=== PATIENT | male | born 1970 | race Hispanic/Latino ===

== ENCOUNTER 2024-04-22 13:26 | Emergency (ER) | payer OTHER ==
[~2024-04-22] VITALS: Ht 167.6 cm; Wt 99.8 kg
[2024-04-22 14:30] VITALS: BP 160/104; PULSE 59; RESP 20; TEMP 98.6
--- NOTE | 2024-04-22 14:49 | ERN ---
General Chief Complaint: Headache Stated Complaint: HEADACHE, CHILLS Time Seen by MD: 13:30 History of Present Illness Initial Comments 53-year-old male sent by the PA for concern for serotonin syndrome. Patient reports that last four days or so he said my clonus and jittering that is uncontrollable, it is even affecting his speech. He has a history of serotonin syndrome in the past. He reports that he was similar symptoms currently. Current medications: Atenolol, atorvastatin, empagliflozin/metformin, insulin, melatonin, montelukast, omeprazole, prazosin, ropinirole, topiramate Allergies: Coded Allergies: divalproex sodium (Unverified Allergy, Intermediate, 04/22/24) Past Medical History Past Medical History: Diabetes-Type II, Hypertension Medical History Other: PTSD, RESTLESS LEG Past Surgical History: Appendectomy ROS Dictation CONSTITUTIONAL: Uncontrollable movements, clonus HEAD/FACE: No signs of trauma. EENT: No eye pain, no blurred vision, no tearing, no double vision, no ear pain, no ear discharge, no nose pain, no nasal congestion, no throat pain, no throat swelling, no mouth pain. RESPIRATORY: No cough, no orthopnea, no SOB, no stridor, no wheezing. CARDIOVASCULAR: No chest pain, no edema, no palpitations, no syncope. GASTROINTESTINAL/ABDOMINAL: No abdominal pain, no constipation, no diarrhea, no nausea, no vomiting. GENITOURINARY: No abnormal discharge, no dysuria, no frequent urination, no hematuria. No complaints of pain in the genitals. MUSCULOSKELETAL: No back pain, no gout, no joint pain, no joint swelling, no muscle pain, no muscle stiffness, no neck pain. INTEGUMENTARY: No change in color, no change in hair/nails, no dryness, no lesion, no lumps, no rash. NEUROLOGICAL/PSYCH: No anxiety, not depressed, no emotional problem, no headache, no numbness, no pre-existing deficit, no history of seizures, no tremors, no weakness. HEMATOLOGIC/LYMPHATIC: Not anemic, no history of blood clots, no apparent bleeding, no bruising, glands not swollen. All Systems Negative, Except as Noted. Physical Exam Physical Exam Dictation VITAL SIGNS: Reviewed. GENERAL APPEARANCE: Alert, oriented x3, no acute distress, obese. HEAD AND FACE: Non-traumatic. EYES: PERRL, pink conjunctivas, eyelid no trauma, anterior chamber clear. EARS: Pinnas intact and no signs of trauma or erythema. Ear canals clear and no discharge. TMs no erythema. NOSE: No discharge, no bleeding. OROPHARYNX: Mouth normal, teeth no caries, tongue pink. Pharynx clear, no erythema. Tonsils no exudates, no abscesses noted. Mucous membrane moist. NECK: Supple, non-tender, no thyromegaly, no masses, no JVD, no bruits. BREAST: Deferred. CHEST: No tenderness, no crepitus, no paradoxical movement, no retractions. LUNGS: Clear, well-ventilated, symmetric, no rales, no wheezing, no rhonchi, no stridor, good breath sounds bilaterally. HEART: Regular rate, regular rhythm, no murmur, no gallops. VASCULAR: No peripheral edema. ABDOMEN: Soft, positive bowel sounds, nondistended, no guarding, nontender, no rebound, no masses no hepatomegaly, no splenomegaly, no Hackett's sign, no hernias. RECTAL: Deferred. GENITAL: Deferred. NEUROLOGICAL: Normal speech, gross motor function intact, gross sensory function intact. MUSCULOSKELETAL: Neck nontender, full range of motion, back nontender, full range of motion. Uncontrollable jerking/myoclonus EXTREMITIES: Nontender, full range of motion. SKIN: Color pink, dry, no turgor, no rash, no lacerations, no abrasions, no contusions. LYMPHATICS: Deferred. Results Laboratory and Microbiology Lab and Micro Result Laboratory Tests Test 04/22/24 15:10 04/22/24 15:13 Urine Color YELLOW (YELLOW) Urine Appearance CLEAR (CLEAR) Urine pH 5.5 (5.0-8.0) Urine Specific Maple 1.037 (1.001-1.031) Urine Protein 50 mg/dL (NEGATIVE) H Urine Glucose (UA) >=1000 mg/dL (NEGATIVE) H Urine Ketones NEGATIVE mg/dL (NEGATIVE) Urine Occult Blood NEGATIVE (NEGATIVE) Urine Nitrate NEGATIVE (NEGATIVE) Urine Bilirubin NEGATIVE mg/dL (NEGATIVE) Urine Urobilinogen 0.2 mg/dL (0.2-1.0) Urine Leukocyte Esterase NEGATIVE Oliverio/uL Urine RBC 0-1 /HPF (0-1) Urine WBC 2-5 /HPF (0-1) H Urine Squamous Epithelial Cells RARE /HPF (0-2) Urine Other Crystals (Auto) 3 /HPF (None Seen) Urine Bacteria RARE /HPF (None Seen) Urine Yeast RARE /HPF (None Seen) Urine Opiates Screen NEGATIVE (NEGATIVE) Urine Barbiturates Screen NEGATIVE (NEGATIVE) Urine Phencyclidine Screen NEGATIVE (NEGATIVE) Urine Amphetamines Screen NEGATIVE (NEGATIVE) Urine Benzodiazepines Screen NEGATIVE (NEGATIVE) Urine Cocaine Screen NEGATIVE (NEGATIVE) Urine Marijuana (THC) Screen NEGATIVE (NEGATIVE) White Blood Count 4.8 K/uL (4.8-10.8) Red Blood Count 4.93 MIL/uL (4.50-6.20) Hemoglobin 14.7 g/dL (14.0-18.0) Hematocrit 45.3 % (42-54) Mean Corpuscular Volume 91.9 fL (79-99) Mean Corpuscular Hemoglobin 29.8 pg (27.0-33.0) Mean Corpuscular Hemoglobin Concent 32.5 g/dL (32.0-36.0) Red Cell Distribution Width 12.9 % (11.0-15.5) Platelet Count 171 K/uL (130-400) Mean Platelet Volume 11.2 fL (7.5-10.5) H Immature Granulocyte % (Auto) 0.2 % (0-1) Neutrophils (%) (Auto) 40.1 % (40.0-77.0) Lymphocytes (%) (Auto) 49.1 % (21.0-51.0) Monocytes (%) (Auto) 6.9 % (3.0-13.0) Eosinophils (%) (Auto) 3.3 % (0.0-8.0) Basophils (%) (Auto) 0.4 % (0.0-5.0) Neutrophils # (Auto) 1.9 K/uL (1.8-7.7) Lymphocytes # (Auto) 2.4 K/uL (1.0-4.8) Monocytes # (Auto) 0.3 K/uL (0.1-1.0) Eosinophils # (Auto) 0.16 K/uL (0.00-0.70) Basophils # (Auto) 0.02 K/uL (0.00-0.20) Absolute Immature Granulocyte (auto 0.01 K/uL (0-1) Nucleated Red Blood Cells 0.0 % (0.0-0.19) Sodium Level 141 mmol/L (136-145) Potassium Level 3.8 mmol/L (3.5-5.1) Chloride Level 105 mmol/L (101-111) Carbon Dioxide Level 30 mmol/L (21-32) Blood Urea Nitrogen 20 mg/dL (7-18) H Creatinine 0.8 mg/dL (0.5-1.3) Glomerular Filtration Rate Calc 105 mL/min (>90) Random Glucose 151 mg/dL (70-105) H Lactic Acid Level 1.3 mmol/L (0.8-2.5) Total Calcium 9.0 mg/dL (8.5-10.1) Magnesium Level 1.90 mg/dL (1.80-2.40) Total Creatine Kinase 256 U/L (21-232) H Troponin I High Sensitivity 7.3 ng/L (4-75) MDM CC: Uncoordinated turkey type movements for the last four days Historian: Patient Comorbidities: Type 2 diabetes, hypertension, history of serotonin syndrome Limitations by social determinants of health: None Vital signs: Stable remained stable in the ER. He was mildly hypertensive. Clinical exam is unremarkable other than some clonic type movements. Differential diagnosis: Serotonin syndrome, other neurologic disorder Labs (independently ordered and interpreted by me): Metabolic panel is unremarkable other than an elevated BUN to creatinine ratio consistent with dehydration. Lactic acid is normal. Calcium normal. Troponin normal. CK is normal. CBC is normal. He had he was normal. He does have some clonic type motions consistent with serotonin syndrome and he was had this in the past and says that it feels the same. That said there was no autonomic instability at this time other than in the hypertension. He was nontoxic in appearance. He reports a symptom has been present for four days or. Consultation: Discuss the case with the poison control Center. They recommend fluids and benzodiazepine. 1 L normal saline ordered, Ativan ordered. I did offer the patient admission I initially evaluated the patient because they said that we can have him see Neurology and figure out what is going on since he was having this new neurologic symptoms. He told me that he was not want to stay in the hospital because he was stay care of his child at home. I did explain the risks and benefits of staying versus going. Of note, when the patient was called to get her room back in the emergency department after her staying in the waiting room after my evaluation of the wo rkup, patient was no where to be found. I suspect the patient eloped from waiting room. ED Course Orders Procedure Category Date Status Time Lactated Ringers PHA 04/22/24 Complete 1000ml (Lactated 15:00 Cardiac Panel LAB 04/22/24 Complete 14:46 Cbc With Differential LAB 04/22/24 Complete 14:46 Basic Metabolic Panel LAB 04/22/24 Complete 14:46 Magnesium LAB 04/22/24 Complete 14:46 Urinalysis Profile LAB 04/22/24 Complete 14:46 Lactic Acid LAB 04/22/24 Complete 14:46 Creatine Kinase, Total LAB 04/22/24 Complete 14:46 Drug Screen Urine LAB 04/22/24 Complete 14:46 Lorazepam 2 Mg PHA 04/22/24 Complete (Ativan) 17:00 Current Medications Medications (Trade) Dose Ordered Sig/Regulo Route PRN Reason Start Time Stop Time Status Last Admin Dose Admin Lactated Ringer's 1,000 ml @ 0 mls/hr ONCE ONCE IV 04/22/24 15:00 04/22/24 15:01 DC Lorazepam (AtiVAN) 1 mg ONCE ONCE IVP 04/22/24 17:00 04/22/24 17:02 DC Vital Signs Date Time Temp Pulse Resp B/P (MAP) Pulse Ox O2 Delivery O2 Flow Rate FiO2 04/22/24 14:30 98.6 59 20 160/104 100 Room Air 0 DX & DISP Disposition: Other(Comment) (ELOPED from waiting room after evaluation) Departure Impression: Primary Impression: Abnormal movements Condition: Stable Referrals: NONE (PCP) FRANCHESCA MOCTEZUMA DO Apr 22, 2024 14:49
[2024-04-22] MEDS ORDERED: LACTATED RINGERS 1000ML 1,000 ML IV ONE (15:00)
[2024-04-22 15:39] LABS: BASOPHILS # (AUTO) 0.02 K/uL (0.00-0.20); BASOPHILS % (AUTO) 0.4 % (0.0-5.0); EOSINOPHILS # (AUTO) 0.16 K/uL (0.00-0.70); EOSINOPHILS % (AUTO) 3.3 % (0.0-8.0); HEMATOCRIT 45.3 % (42-54); IMMATURE GRANULOCYTE ABSOLUTE 0.01 K/uL (0-1); LYMPHOCYTES # (AUTO) 2.4 K/uL (1.0-4.8); LYMPHOCYTES % (AUTO) 49.1 % (21.0-51.0); MEAN CORPUSCULAR HEMOGLOBIN 29.8 pg (27.0-33.0); MEAN CORPUSCULAR HGB CONC 32.5 g/dL (32.0-36.0); MEAN CORPUSCULAR VOLUME 91.9 fL (79-99); MONOCYTES # (AUTO) 0.3 K/uL (0.1-1.0); MONOCYTES % (AUTO) 6.9 % (3.0-13.0); NEUTROPHILS # (AUTO) 1.9 K/uL (1.8-7.7); NEUTROPHILS % (AUTO) 40.1 % (40.0-77.0); PLATELET COUNT (AUTO) 171 K/uL (130-400); RED BLOOD CELL COUNT(AUTO) 4.93 MIL/uL (4.50-6.20); RED CELL DISTRIBUTION WIDTH 12.9 % (11.0-15.5); WHITE BLOOD COUNT (AUTO) 4.8 K/uL (4.8-10.8)
[2024-04-22 15:49] LABS: AMPHET/METH SCREEN,URINE NEGATIVE (NEGATIVE); BARBITURATE SCREEN, URINE NEGATIVE (NEGATIVE); BENZODIAZEPINES SCREEN,URINE NEGATIVE (NEGATIVE); CANNABINOID SCREEN,URINE NEGATIVE (NEGATIVE); COCAINE SCREEN,URINE NEGATIVE (NEGATIVE); OPIATE SCREEN,URINE NEGATIVE (NEGATIVE); PHENCYCLIDINE SCREEN,URINE NEGATIVE (NEGATIVE)
[2024-04-22 15:50] LABS: APPEARANCE,URINE CLEAR (CLEAR); BILIRUBIN,URINE NEGATIVE (NEGATIVE); COLOR,URINE YELLOW (YELLOW); GLUCOSE, URINE (UA) >=1000 mg/dL (NEGATIVE); KETONES,URINE NEGATIVE (NEGATIVE); LEUKOCYTE ESTERASE ,URINE NEGATIVE Leu/uL (NEGATIVE); NITRATE,URINE NEGATIVE (NEGATIVE); OCCULT BLOOD,URINE NEGATIVE (NEGATIVE); PH,URINE 5.5 (5.0-8.0); PROTEIN,URINE 50 mg/dL (NEGATIVE); UROBILINOGEN,URINE 0.2 mg/dL (0.2-1.0)
[2024-04-22 15:50] LABS: CREATININE 0.8 mg/dL (0.5-1.3); POTASSIUM 3.8 mmol/L (3.5-5.1)
[2024-04-22 15:57] LABS: MAGNESIUM 1.9 mg/dL (1.80-2.40)
[2024-04-22 16:11] LABS: ADD UA MICROSCOPIC YES
[2024-04-22 16:17] LABS: BACTERIA,URINE RARE /HPF (None Seen); MUCUS,URINE MOD LPF (None Seen); RBC,URINE 0-1 /HPF (0-1); SQUAMOUS EPITHELIAL CELL,UR RARE /HPF (0-2); UNCLASSIFIED CRYSTAL 3 /HPF (None Seen); YEAST,URINE BUDDING RARE /HPF (None Seen)
--- NOTE | 2024-04-22 16:44 | NUR ---
CALLED POISON CONTROL, . PER WORKER, IF MD IS SUSPECTING SERATONIN SYNDROME, PT CAN BE TREATED WITH BENZODIAZEPINES AND IV FLUIDS. BASIC LABS AND EKG CAN BE OBTAINED.
[2024-04-22] MEDS ORDERED: LORazepam 2 MG/ML 1 ML VIAL IVP ONE (17:00)
== END 2024-04-22 17:25 | disposition left against medical advice (07) ==
LOC: EDH 13:26
DX: R25.8 Other abnormal involuntary movements (principal); E11.9 Type 2 diabetes mellitus without complications; I10 Essential (primary) hypertension; Z79.899 Other long term (current) drug therapy; Z88.8 Allergy status to other drugs, medicaments and biological substances; Z90.49 Acquired absence of other specified parts of digestive tract
CPT/HCPCS: 36415; 80048; 80305; 81001; 82550; 83605; 83735; 84484; 85025; 99283